=== PATIENT | female | born 1955 | race Caucasian/White ===

== ENCOUNTER 2019-01-16 13:06 | Emergency (ER) | payer OTHER, SELFPAY ==
[2019-01-16 13:42] LABS: #Basophils 0.2 thou/uL (0.0-0.2); #Eosinphils 0.1 thou/uL (0.0-0.7); #Lymphocytes 5.2 thou/uL (1.20-3.40); #Monocytes 0.7 thou/uL (0.11-0.59); #Neutrophils 7.1 thou/uL (1.40-6.50); %Basophils 1.2 % (0.0-1.0); %Eosinophils 0.8 % (0.0-10.0); %Monocytes 5.2 % (0.0-10.0); %Neutrophils 53.9 % (42.0-75.0); Hemoglobin 15.5 g/dL (12.0-16.0); Mean Corpuscular HGB CONC 33.5 g/dL (32.0-36.0); Mean Corpuscular Hemoglobin 32.6 pg (27.0-31.0); Mean Corpuscular Volume 97.5 fL (78.0-98.0); Mean Platelet Volume 8.6 fL (7.4-10.4); Platelet Count 348 thou/uL (130-400); RBC Distribution Width 12.4 % (11.5-14.5); Red Blood Cell (RBC) Count 4.75 mill/uL (4.20-5.40); White Blood Cell (WBC) Count 13.2 thou/uL (4.8-10.8)
[2019-01-16 13:49] LABS: PTT 28.5 SEC (22.9-36.1); Prothrombin Time 12.9 SEC (12.0-14.7)
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
[2019-01-16 14:03] LABS: ALT (SGPT) 14 U/L (8-55); AST (SGOT) 16 U/L (5-34); Albumin 4.2 g/dL (3.4-4.8); Alcohol Less than 10 mg/dL (Less than 10); Alkaline Phosphatase 90 U/L (40-110); Anion Gap 15 mmol/L (10-20); BUN (Urea Nitrogen) 13 mg/dL (9.8-20.1); Bilirubin, Total 0.3 mg/dL (0.2-1.2); Calc. Creatinine Clearance 0 mL/min (70-130); Calcium 9.4 mg/dL (7.8-10.44); Carbon Dioxide 23 mmol/L (23-31); Chloride 105 mmol/L (98-107); Estimated GFR-MDRD 60; Globulin 2.8 g/dL (2.4-3.5); Glucose 108 mg/dL (80-115); Lipase 23 U/L (8-78); Potassium 3.9 mmol/L (3.5-5.1); Sodium 139 mmol/L (136-145)
[2019-01-16] MEDS ORDERED: Morphine 4 MG/ML VIAL ONE ×2 (14:10→15:10)
[2019-01-16] MEDS ORDERED: Ondansetron PF 4 MG/2 ML Vial ONE (14:10)
[2019-01-16] MEDS ORDERED: Adacel (T-DAP) 0.5 ML SYRINGE ONE (14:10)
[2019-01-16 14:40] LABS: Base Excess-Venous -0.4 mmol/L (-2.0 to 3.0); Bicarbonate (HCO3v) 24.4 mmol/L (22.0-28.0); CO2 Tension (PvCO2) 39.5 mmHg (40.0-50.0); Calcium, Ionized 1.11 mmol/L (See Comments:); Chloride 108 mmol/L (98-107); Hemoglobin - Calc 13.6 g/dL (12.0-16.0); Potassium 3.9 mmol/L (3.5-5.1); Sodium 141 mmol/L (138-145); T. Carbon Dioxide 25.6 mmol/L (22.0-28.0); vO2 Saturation-calc 77.9 % (60.0-85.0)
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
[2019-01-16 15:34] LABS: Bilirubin Negative (Negative); Blood, Urine Negative (Negative); Clarity Clear (Clear); Glucose, Urine (Dipstick) Normal (Negative); Leukocyte Negative Leu/uL (Negative); Nitrite Negative (Negative); Protein, Urine (Dipstick) Negative (Neg-Trace); Urobilinogen Normal mg/dL (Less than 2)
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
== END 2019-01-16 16:59 | disposition home or self-care (01) ==
LOC: ERS 13:06
DX: S32.019A Unspecified fracture of first lumbar vertebra, initial encounter for closed fracture (principal); S32.029A Unspecified fracture of second lumbar vertebra, initial encounter for closed fracture; E78.5 Hyperlipidemia, unspecified; V49.9XXA Car occupant (driver) (passenger) injured in unspecified traffic accident, initial encounter
CPT/HCPCS: 36415; 70450; 70486; 71045; 71260; 72125; 72170; 74177; 80053; 80307; 81003; 82330; 82803; 83690; 84484; 85025; 85610; 85730; 86850; 86900; 86901; 90471; 90715; 96361; 96374; 96375; 96376; G0390; J2270; J2405

== ENCOUNTER 2019-12-20 06:10 | Outpatient (CLI) | payer MEDICARE, OTHER ==
[2019-12-20 14:21] LABS: Hemoglobin 14.3 g/dL (12.0-16.0); Mean Corpuscular Hemoglobin 31.7 pg (27.0-31.0); Mean Corpuscular Volume 98.9 fL (78.0-98.0); Mean Platelet Volume 9.1 fL (7.4-10.4); Platelet Count 385 thou/uL (130-400); RBC Distribution Width 12.6 % (11.5-14.5); Red Blood Cell (RBC) Count 4.51 mill/uL (4.20-5.40); White Blood Cell (WBC) Count 7.3 thou/uL (4.8-10.8)
--- NOTE | 2019-12-20 14:55 | EKG ---
Test Reason : Blood Pressure : / mmHG Vent. Rate : 096 BPM Atrial Rate : 096 BPM P-R Int : 166 ms QRS Dur : 098 ms QT Int : 352 ms P-R-T Axes : 072 112 046 degrees QTc Int : 444 ms Normal sinus rhythm Incomplete right bundle branch block Left posterior fascicular block Abnormal ECG No previous ECGs available Confirmed by YARELIS AMBROSE M.D. ([id number]) on 12/20/2019 2:54:58 PM Referred By: SRINI Confirmed By:YARELIS AMBROSE M.D.
[2019-12-20 20:15] LABS: Anion Gap 16 mmol/L (10-20); BUN (Urea Nitrogen) 12 mg/dL (9.8-20.1); Calc. Creatinine Clearance 0 mL/min (70-130); Calcium 9.2 mg/dL (7.8-10.44); Carbon Dioxide 21 mmol/L (23-31); Chloride 106 mmol/L (98-107); Estimated GFR-MDRD 68; Glucose 76 mg/dL (80-115); Potassium 4.5 mmol/L (3.5-5.1); Sodium 138 mmol/L (136-145)
[2019-12-21 13:00] LABS: SARS-CoV-2 MS2 Positive; SARS-CoV-2 N Gene Negative; SARS-CoV-2 S Gene Negative; SARS-CoV-2 by NAA Not Detected (NotDetected); SARS-CoV-2 orf1ab Negative
== END 2019-12-20 06:11 | disposition home or self-care (01) ==
LOC: LABBT 06:10
PROVIDERS: ATTEND Neurological Surgery
DX: Z01.818 Encounter for other preprocedural examination (principal); Z20.828 Contact with and (suspected) exposure to other viral communicable diseases; M54.16 Radiculopathy, lumbar region
CPT/HCPCS: 80048; 85027; 93005; U0003; 87635; 93010

== ENCOUNTER 2019-12-20 11:30 | Inpatient (IN) | payer MEDICARE, OTHER ==
[2019-12-21 13:07] VITALS: BMI 31.6
[2019-12-23] MEDS ORDERED: Fentanyl 100 MCG/2 ML VIAL ONE ×5 (06:52→10:10)
[2019-12-23] MEDS ORDERED: SUGAMMADEX SODIUM 200 MG/2 ML VIAL ONE (08:51)
[2019-12-23] MEDS ORDERED: Promethazine HCl 25 MG/ML VIAL SLOW IVP PRN (08:54)
[2019-12-23] MEDS ORDERED: Morphine Sulfate 2 MG/ML SYRINGE SLOW IVP PRN (08:54)
[2019-12-23] MEDS ORDERED: Promethazine HCl 25 MG/ML VIAL IM PRN ×2 (08:54→11:30)
[2019-12-23] MEDS ORDERED: PACU-Morphine 4MG/ML VIAL SLOW IVP PRN (08:54)
[2019-12-23] MEDS ORDERED: HYDROmorphone 2 MG/ML VIAL SLOW IVP PRN (08:54)
[2019-12-23] MEDS ORDERED: Ondansetron HCl/PF 4 MG/2 ML Vial IVP PRN (08:54)
[2019-12-23] MEDS ORDERED: HYDROmorphone 2 MG/ML VIAL ONE (09:36)
--- NOTE | 2019-12-23 09:56 | OP ---
DATE OF PROCEDURE: 12/23/2019 PHOTO STYLIST: Keira Garcia PA-C PROCEDURES PERFORMED: Removal of hardware, L3-L4; exploration of spinal fusion, L4-L5; left L4-L5 laminectomy, facetectomy, foraminotomy, diskectomy; interbody arthrodesis, intervertebral biomechanical device, local morselized autograft, demineralized bone matrix, posterolateral arthrodesis, L4-L5. DESCRIPTION OF PROCEDURE: The patient was brought to the operating room and intubated. She was rolled in a prone position on gel-filled chest rolls. The previous incision was reopened and extended and L3 through L5 was exposed. We explored the spinal fusion L3-L4 and it seemed to be solid. We removed the left-sided nuts and rods at L3-L4. We performed left L4-L5 laminectomy, facetectomy, foraminotomy, and diskectomy, completely decompressing left L5. Next, pedicle screw was placed at left L5, connected to the existing screw at L4, secured by nuts, which were final tightened. The wound was then extensively irrigated and MAC hemostasis was secured. Posterolateral surfaces on the right were prepared for the purpose of arthrodesis and a combination of demineralized bone matrix and local morselized autograft was laid over the lamina and posterolateral surfaces for the purpose of arthrodesis. Vancomycin powder was applied and the wound was then closed in anatomic layers. Job ID: [id number]
[2019-12-23] MEDS ORDERED: Lidocaine 1% PF 5 ML VIAL ONE (10:42)
[2019-12-23] MEDS ORDERED: Rocuronium Bromide 10 MG/ML (10ML VIAL) ONE (10:42)
[2019-12-23] MEDS ORDERED: Metoclopramide HCl 10 MG/2 ML VIAL ONE (10:42)
[2019-12-23] MEDS ORDERED: PROPOFOL 200 MG/20 ML VIAL ONE (10:42)
[2019-12-23] MEDS ORDERED: Dexamethasone 20 MG/5 ML VIAL ONE (10:42)
[2019-12-23] MEDS ORDERED: Ondansetron PF 4 MG/2 ML Vial ONE (10:42)
[2019-12-23] MEDS ORDERED: Cyclobenzaprine 10 MG TAB PO PRN ×2 (11:16→11:30)
[2019-12-23] MEDS ORDERED: diphenhydrAMINE 50 MG/ML VIAL IVP PRN (11:30)
[2019-12-23] MEDS ORDERED: Acetaminophen/Codeine 30-300mg Tablet PO PRN (11:30)
[2019-12-23] MEDS ORDERED: diphenhydrAMINE 25 MG CAP PO PRN (11:30)
[2019-12-23] MEDS ORDERED: Ondansetron PF 4 MG/2 ML Vial IM PRN (11:30)
[2019-12-23] MEDS ORDERED: traMADol HCl 50 MG TAB PO PRN (11:30)
[2019-12-23] MEDS ORDERED: Morphine 2 MG/ML VIAL SLOW IVP PRN (11:30)
[2019-12-23] MEDS ORDERED: Milk Of Magnesia 30 ML UDCUP PO PRN (11:30)
[2019-12-23] MEDS ORDERED: Promethazine HCl 12.5 MG SUPP PR PRN (11:30)
[2019-12-23] MEDS ORDERED: Mag-Al 1200 mg/1200 mg/30 ML UDCUP PO PRN (11:30)
[2019-12-23] MEDS ORDERED: Morphine 4 MG/ML VIAL SLOW IVP PRN (11:30)
[2019-12-23] MEDS ORDERED: Promethazine 25 MG TAB PO PRN (11:30)
[2019-12-23] MEDS: Sodium Chloride 0.9% 1,000 ML IV SCH ×2 (11:54→14:28)
[2019-12-23] MEDS: Pregabalin 50 MG CAP PO SCH ×2 (14:28→19:57)
[2019-12-23] MEDS: CEFAZOLIN 2 GM in Premix Bag 1 BAG IVPB SCH ×2 (14:29→21:44)
[2019-12-23] MEDS: Acetaminophen/Codeine 30-300mg Tablet PO PRN ×2 (15:47→19:58)
[2019-12-23] MEDS ORDERED: Rosuvastatin 20 MG TAB PO SCH (21:00)
[2019-12-24] MEDS: Acetaminophen/Codeine 30-300mg Tablet PO PRN (05:29)
[2019-12-24] MEDS ORDERED: Levothyroxine Sodium 88 MCG TAB PO SCH (06:00)
[2019-12-24] MEDS: Pregabalin 50 MG CAP PO SCH (08:30)
[2019-12-24] MEDS ORDERED: Estradiol 1 MG TAB PO SCH (09:00)
[2019-12-24 11:38] VITALS: BP 109/68; TEMP 98.8
--- NOTE | 2019-12-26 06:09 | DIS ---
DATE OF ADMISSION: 12/23/2019 DATE OF DISCHARGE: 12/24/2019 HOSPITAL COURSE: The patient is a 64-year-old female, recently evaluated in our office for new left leg pain. She was found to have a new herniated disk below her prior fusion at L3-L4, disk herniation was on the left at L4-L5. She underwent removal of hardware and extension of her fusion as well as a L4-L5 diskectomy on 12/23/2019. Following the surgery, she was transitioned to the Med/Surg floor, where her pain was well controlled with p.o. medications, she was tolerating a regular diet, and voiding appropriately. Her exam on postoperative day #1, she was awake, alert, in no acute distress. She has free active range of motion of all extremities. No focal motor weakness. Her incision was clean, dry, and intact. We will plan to dismiss the patient to home. I have discussed home care precautions and will follow up with the patient in 2 weeks. She has been provided scripts for Keflex and Diflucan. She is taking Tylenol No. 3 and Flexeril for pain already at home. Job ID: [id number]
--- NOTE | 2019-12-30 13:00 | PQF ---
CLINICAL DOCUMENTATION CLARIFICATION FORM: Dear : Je Miguel Date / Time: 12/30/2019 Please exercise your independent, professional judgment in responding to the clarification form. Clinical indicators are provided on the bottom of this form for your review [ x ] Posterolateral arthrodesis using autograft L4-5 with PLIF using interbody arthrodesis [ ] Posterolateral arthrodesis using autograft L4-5 without PLIF using interbody arthrodesis [ ] Unable to determine [ ] Other procedure: To be completed by CDI/Coding staff for physician review: Present Clinical Indicators - Signs / Symptoms / Labs Results and Location in Medical Record [ x ] Procedure performed: Removal of hardware, spinal fusion exploration, interbody arthrodesis, local morselized autograft and posterolateral arthrodesis, L4-5 Operative note 12/22 by Je Miguel MD [ x ] Lumbar spine implants: Lumbar PEEK x1, poly screw x1, ankit x1, polyaxial head x1 and set screw x1 Progress note 12/22 under Notes [ x ] She underwent removal of hardware and extension of her fusion as well as diskectomy Discharge summary [ ] Present Risk Factors Results and Location in Medical Record [ x ] History of fusion, new herniated disk below prior fusion Discharge summary CDS/Oxidized Finish Plater Signature: [email or web address] Phone #: Date/Time: 12/30/2019 This is a permanent part of the Medical Record [facility]
== END 2019-12-24 12:00 | disposition home or self-care (01) | DRG 455 ==
LOC: SURG A 12-23 06:02 → SURG B 12-23 11:02 → SURG A 12-23 11:10 → EDSTATUS 12-23 11:30
PROVIDERS: ADMIT Neurological Surgery; ATTEND Neurological Surgery
PROC: 0SG0071 Fusion of Lumbar Vertebral Joint with Autologous Tissue Substitute, Posterior Approach, Posterior Column, Open Approach (ICD-10-PCS; principal; 2019-12-23)
PROC: 0SP004Z Removal of Internal Fixation Device from Lumbar Vertebral Joint, Open Approach (ICD-10-PCS; 2019-12-23)
PROC: 0SB20ZZ Excision of Lumbar Vertebral Disc, Open Approach (ICD-10-PCS; 2019-12-23)
PROC: 0SG00AJ Fusion of Lumbar Vertebral Joint with Interbody Fusion Device, Posterior Approach, Anterior Column, Open Approach (ICD-10-PCS; 2019-12-23)
DX: M51.16 Intervertebral disc disorders with radiculopathy, lumbar region (principal); E78.5 Hyperlipidemia, unspecified; Z90.710 Acquired absence of both cervix and uterus
CPT/HCPCS: 76000; 80048; 85027; 87635; 93005; C1713; C1768; J0690; J1100; J1170; J2270; J2405; J2704; J2765; J3010; J3370; J3490; U0003

== ENCOUNTER 2020-01-06 12:56 | Outpatient (CLI) | payer MEDICARE, OTHER ==
--- NOTE | 2020-01-06 17:05 | RAD ---
LUMBAR SPINE 2 VIEWS: HISTORY: Lumbar radiculopathy. FINDINGS: Pedicle screws on the right at L3-4 and pedicle screws on the left at L3, L4, and L5. Fracture of th e ankit connecting the pedicle screws on the left at L3 and L4. Interbody implant at both these levels . Lumbar vertebrae maintain normal height and alignment. There is loss of disk space at L5-S1. Mil d degenerative spurring. IMPRESSION: Postoperative changes as described above. POS: JANUSZ
== END 2020-01-06 12:57 | disposition home or self-care (01) ==
LOC: TBSIIMAG 12:56
PROVIDERS: ATTEND Neurological Surgery
DX: M54.16 Radiculopathy, lumbar region (principal); Z98.890 Other specified postprocedural states
CPT/HCPCS: 72100

== ENCOUNTER 2020-01-06 14:38 | Outpatient (CLI) | payer MEDICARE, OTHER ==
--- NOTE | 2020-01-06 18:24 | CT ---
CT LUMBAR SPINE WITHOUT CONTRAST: 01/06/20 COMPARISON: 11/15/19. CORRELATION: Lumbar spine MRI 12/06/19. FINDINGS: Redemonstration of bilateral transpedicular screws at L3 and L4. Interval placement of unilateral lef t sided transpedicular screw at L5. There is a disc prosthesis at L4-L5. Stable hyperdensity in the L 3-L4 disc space. Stable straightening of the lumbar lordosis. There are five lumbar type vertebrae. Vacuum disc phenomenon at L5-S1 is demonstrated. Interval placement of bone graft material along the left posterior elements at L3-L4, L4-L5 and L5-S1 . Appropriate attenuation of the visualized paraspinal muscles and solid organs. Minimal diverticulosis in the visualized sigmoid colon. No diverticulitis. There is evidence of partial resection involving the lamina and inferior left facet at L4. With regards to the fusion hardware, there is no evidence of perihardware lucency. Limited evaluation of the contents of the central spinal canal and neural foramina due to technique. T12-L1: No high grade central canal stenosis or high grade neural foraminal narrowing. L1-L2: No posterior disc abnormality. No significant central canal stenosis or significant neural for aminal narrowing. L2-L3: Broad based disc bulge, ligamentum flavum thickening and facet hypertrophy result in mild cent ral canal stenosis, unchanged. Mild bilateral foraminal narrowing predominantly due to disc material. L3-L4: Disc prosthesis. No high grade central canal stenosis or high grade foraminal narrowing. L4-L5: Disc prosthesis. Postsurgical change with a left hemilaminectomy defect and left inferior face tectomy. There is a broad based disc bulge with what appears to be residual disc material or scar tis zaria in the left subarticular zone and central aspect of the central spinal canal. There is subsequent moderate narrowing of the disc space and presumed complete obscuration of the traversing left L5 ner ve root. Mild to moderate right and left foraminal narrowing. L5-S1: Vacuum disc phenomenon. Broad based disc bulge with minimal encroachment upon the left and rig ht subarticular zone. No significant mass effect or obscuration of the traversing S1 nerve root. Mode rate bilateral foraminal narrowing. IMPRESSION: 1. Interval placement of a left sided transpedicular screw at L5. Interval resection of the left lamina and inferior left facet at L4. 2. Interval placement of disc prosthesis at L4-L5. There is abnormal soft tissue density along t he posterior aspect of the disc space as well as in the central aspect of the midline aspect of the s helene canal and left subarticular zone. Residual disc material and/or scar tissue is suspected. There is moderate central canal stenosis with likely near complete obscuration of the traversing left L5 n erve root. Further evaluation with a pre and post contrast lumbar spine MRI is recommended. POS: GAL
== END 2020-01-06 14:39 | disposition home or self-care (01) ==
LOC: TBSIIMAG 14:38
PROVIDERS: ATTEND Neurological Surgery
DX: M54.16 Radiculopathy, lumbar region (principal); M48.061 Spinal stenosis, lumbar region without neurogenic claudication; Z98.890 Other specified postprocedural states
CPT/HCPCS: 72100; 72131

== ENCOUNTER 2020-02-28 10:31 | Outpatient (CLI) | payer MEDICARE, OTHER ==
--- NOTE | 2020-02-28 12:15 | RAD ---
LUMBAR SPINE 2 VIEWS: Date: 02/28/2020 HISTORY: Lumbar radiculopathy. COMPARISON: 01/06/2020. FINDINGS: Postoperative changes are again noted. Pedicle screws on the left at L3, L4, and L5. Fracture of the ankit on the left at L3-4, unchanged from prior exam. Pedicle screws on the right at L3 and L4. Interbody implants. The postoperative changes are stable fr om the prior exam of 01/06/2020. No interval change identified. No evidence of hardware loosening. IMPRESSION: Stable lumbar findings. POS: JANUSZ
== END 2020-02-28 10:32 | disposition home or self-care (01) ==
LOC: TBSIIMAG 10:31
PROVIDERS: ATTEND Neurological Surgery
DX: M54.16 Radiculopathy, lumbar region (principal)
CPT/HCPCS: 72100

== ENCOUNTER 2021-02-28 09:43 | Outpatient (CLI) | payer MEDICARE, OTHER | END 2021-02-28 09:44 | disposition home or self-care (01) | LOC: BICMAMMO 09:43 | PROVIDERS: ATTEND Specialist | DX: Z12.31 Encounter for screening mammogram for malignant neoplasm of breast (principal) | CPT/HCPCS: 77063; 77067 ==

== ENCOUNTER 2021-04-07 12:15 | Emergency (ER) | payer OTHER, MEDICARE ==
[~2021-04-07 12:15] MED LIST: Iopamidol-370 76% 500 ML 1 ML ONE
[2021-04-07] MEDS ORDERED: Ondansetron PF 4 MG/2 ML Vial ONE (13:10)
[2021-04-07] MEDS ORDERED: Morphine 4 MG/ML VIAL ONE ×2 (13:10→14:41)
== END 2021-04-07 15:20 | disposition home or self-care (01) ==
LOC: ERS 12:15
DX: S42.022A Displaced fracture of shaft of left clavicle, initial encounter for closed fracture (principal); S09.90XA Unspecified injury of head, initial encounter; E78.5 Hyperlipidemia, unspecified; Z79.899 Other long term (current) drug therapy; V80.010A Animal-rider injured by fall from or being thrown from horse in noncollision accident, initial encounter
CPT/HCPCS: 70450; 71260; 72125; 96374; 96375; 96376; J2270; J2405; Q9967

== ENCOUNTER 2021-04-18 08:23 | Inpatient (IN) | payer MEDICARE, OTHER ==
[2021-04-18 09:38] LABS: Hemoglobin 14.4 g/dL (12.0-16.0); Mean Corpuscular HGB CONC 31.9 g/dL (32.0-36.0); Mean Corpuscular Hemoglobin 32.9 pg (27.0-31.0); Platelet Count 263 thou/uL (130-400); Red Blood Cell (RBC) Count 4.38 mill/uL (4.20-5.40); White Blood Cell (WBC) Count 30.9 thou/uL (4.8-10.8)
[2021-04-18 09:53] LABS: Band 12 % (5-11); Lymphocytes 11 % (21-51); MDiff Complete? YES; Monocytes 3 % (0-10); Neutrophil 74 % (42-75); Platelet Morphology Comment Appears Adequate; RBC Morphology Normal
[2021-04-18 09:55] LABS: ALT (SGPT) 15 U/L (8-55); AST (SGOT) 22 U/L (5-34); Albumin 3.3 g/dL (3.4-4.8); Alkaline Phosphatase 87 U/L (40-110); Anion Gap 15 mmol/L (10-20); BUN (Urea Nitrogen) 16 mg/dL (9.8-20.1); Bilirubin, Total 0.7 mg/dL (0.2-1.2); Calc. Creatinine Clearance 0 mL/min (70-130); Calcium 8.5 mg/dL (7.8-10.44); Carbon Dioxide 29 mmol/L (23-31); Chloride 99 mmol/L (98-107); Globulin 2.6 g/dL (2.4-3.5); Glucose 128 mg/dL (80-115); Potassium 5.4 mmol/L (3.5-5.1); Protein, Total 5.9 g/dL (5.8-8.1); Sodium 138 mmol/L (136-145)
[2021-04-18 10:36] LABS: CKMB 5.8 ng/mL (0-6.6)
[2021-04-18] MEDS ORDERED: Iopamidol-370 76% 500 ML 1 ML ONE (11:01)
[2021-04-18 11:04] LABS: Bilirubin Negative (Negative); Blood, Urine Trace (Negative); Clarity Turbid (Clear); Glucose, Urine (Dipstick) Normal (Negative); Ketone, Urine Negative (Negative); Leukocyte 500 Leu/uL (Negative); Nitrite 2+ (Negative); Protein, Urine (Dipstick) 20 mg/dL (Neg-Trace); Specific Gravity, Urine 1.017 (1.002-1.036); Squamous Epithelial 0-3 HPF (0-3); Urobilinogen Normal mg/dL (Less than 2); WBC/HPF Greater than 50 HPF (0-3)
[2021-04-18 11:05] LABS: Bacteria/HPF 1+ HPF (None Seen)
[2021-04-18 11:33] LABS: SARS-CoV-2 NAA Rapid Test DETECTED (NotDetected)
[2021-04-18] MEDS ORDERED: Dexamethasone 10 MG/ML VIAL ONE (12:04)
[2021-04-18] MEDS ORDERED: cefTRIAXone\\ROCEPHIN 2 GM VIAL ONE (12:04)
[2021-04-18] MEDS ORDERED: Morphine 4 MG/ML VIAL ONE (12:53)
[2021-04-18 14:49] LABS: Critical Call Chem Troponin I RESULT DECREASING; Troponin I 0.361 ng/mL (< 0.028)
[2021-04-18 15:25] LABS: Lactic Acid 3.5 mmol/L (0.5-2.2)
[2021-04-18 15:26] LABS: PTT 34.5 sec (22.9-36.1); Prothrombin Time 13.6 sec (12.0-14.7)
[2021-04-18] MEDS ORDERED: Enoxaparin Sodium 30 MG/0.3 ML SYRINGE ONE (18:40)
[2021-04-18] MEDS ORDERED: Enoxaparin Sodium 100 MG/ML SYRINGE ONE (18:40)
[2021-04-18] MEDS ORDERED: Pharmacy to Dose REMDESIVIR IVPB PRN (19:33)
[2021-04-18] MEDS ORDERED: Ondansetron HCl/PF 8 MG in Sodium Chloride 0.9% 50 ML IVPB PRN (19:36)
[2021-04-18] MEDS ORDERED: Fentanyl 100 MCG/2 ML VIAL SLOW IVP PRN (19:37)
[2021-04-18] MEDS ORDERED: Azithromycin 500 MG in Sodium Chloride 0.9% 250 ML 250 ML IVPB SCH (20:00)
[2021-04-18 22:56] VITALS: BMI 32.8
[2021-04-18] MEDS: Pregabalin 50 MG CAP PO SCH (23:04)
[2021-04-18] MEDS: Sodium Chloride 0.9% 1,000 ML IV SCH (23:05)
[2021-04-18] MEDS: Pantoprazole 40 MG VIAL IVP SCH (23:05)
[2021-04-19] MEDS: Azithromycin 500 MG in Sodium Chloride 0.9% 250 ML 250 ML IVPB SCH (02:07)
[2021-04-19] MEDS: Levothyroxine Sodium 88 MCG TAB PO SCH (06:06)
[2021-04-19 06:28] LABS: #Eosinphils 0.1 thou/uL (0.0-0.7); #Lymphocytes 0.8 thou/uL (1.20-3.40); #Monocytes 0.3 thou/uL (0.11-0.59); #Neutrophils 21.1 thou/uL (1.40-6.50); %Basophils 0.1 % (0.0-1.0); %Eosinophils 0.2 % (0.0-10.0); %Lymphocytes 3.6 % (21.0-51.0); %Monocytes 1.5 % (0.0-10.0); %Neutrophils 94.6 % (42.0-75.0); Mean Corpuscular HGB CONC 33.1 g/dL (32.0-36.0); Mean Platelet Volume 8.1 fL (7.4-10.4); Platelet Count 184 thou/uL (130-400); RBC Distribution Width 12.6 % (11.5-14.5); Red Blood Cell (RBC) Count 3.83 mill/uL (4.20-5.40); White Blood Cell (WBC) Count 22.3 thou/uL (4.8-10.8)
[2021-04-19 06:48] LABS: Anion Gap 14 mmol/L (10-20); BUN (Urea Nitrogen) 12 mg/dL (9.8-20.1); CRP (Inflammatory) 28.28 mg/dL (= or < 0.5); Calc. Creatinine Clearance 112 mL/min (70-130); Calcium 8.6 mg/dL (7.8-10.44); Carbon Dioxide 23 mmol/L (23-31); Chloride 104 mmol/L (98-107); Glucose 129 mg/dL (80-115); Potassium 5.1 mmol/L (3.5-5.1); Sodium 136 mmol/L (136-145)
[2021-04-19] MEDS ORDERED: Aspirin 325 MG TAB ONE (09:44)
[2021-04-19] MEDS: Aspirin 325 MG TAB PO SCH (09:51)
[2021-04-19] MEDS: Dexamethasone 10 MG/ML VIAL SLOW IVP SCH (09:51)
[2021-04-19] MEDS: Zinc Sulfate 220 MG CAP PO SCH (09:52)
[2021-04-19] MEDS: Pantoprazole 40 MG VIAL IVP SCH ×2 (09:52→21:32)
[2021-04-19] MEDS: Enoxaparin Sodium 100 MG/ML SYRINGE SC SCH ×2 (09:52→21:32)
[2021-04-19] MEDS: Pregabalin 50 MG CAP PO SCH ×3 (09:52→21:33)
[2021-04-19] MEDS ORDERED: Enoxaparin Sodium 40 MG/0.4 ML SYRINGE ONE (09:55)
[2021-04-19] MEDS ORDERED: Enoxaparin Sodium 100 MG/ML SYRINGE ONE (09:58)
[2021-04-19 11:12] LABS: INR-International Normal Ratio 1.1; Prothrombin Time 14.3 sec (12.0-14.7)
[2021-04-19 11:14] LABS: D-Dimer Test 1.53 *mcg/mL (0.27-0.43)
[2021-04-19] MEDS: cefTRIAXone\\ROCEPHIN 1 GM in Sodium Chloride 0.9% 100 ML IVPB SCH (12:37)
[2021-04-19] MEDS: Sodium Chloride 0.9% 1,000 ML IV SCH (12:37)
[2021-04-19] MEDS ORDERED: Ziprasidone 20 MG VIAL ONE (16:23)
[2021-04-19] MEDS ORDERED: Sterile Water 0 ML ONE (16:25)
[2021-04-19] MEDS ORDERED: Sterile Water 10 ML ONE (16:26)
[2021-04-19] MEDS ORDERED: Ziprasidone 20 MG VIAL IM SCH (16:30)
[2021-04-19] MEDS ORDERED: Lorazepam 2 MG/ML VIAL SLOW IVP PRN ×2 (17:55→19:07)
[2021-04-19] MEDS: Ergocalciferol 1.25 MG(50,000 UNITS) CAP PO SCH (19:55)
[2021-04-20] MEDS: Sodium Chloride 0.9% 1,000 ML IV SCH ×4 (02:39→18:04)
[2021-04-20] MEDS: Azithromycin 500 MG in Sodium Chloride 0.9% 250 ML 250 ML IVPB SCH (02:40)
[2021-04-20] MEDS: Levothyroxine Sodium 88 MCG TAB PO SCH (06:10)
[2021-04-20 06:46] LABS: Anion Gap 15 mmol/L (10-20); BUN (Urea Nitrogen) 20 mg/dL (9.8-20.1); CRP (Inflammatory) 13.64 mg/dL (= or < 0.5); Calc. Creatinine Clearance 91 mL/min (70-130); Calcium 8.9 mg/dL (7.8-10.44); Carbon Dioxide 26 mmol/L (23-31); Chloride 106 mmol/L (98-107); Glucose 124 mg/dL (80-115); Potassium 4.2 mmol/L (3.5-5.1); Sodium 143 mmol/L (136-145)
[2021-04-20 06:50] LABS: Troponin I 0.137 ng/mL (< 0.028)
[2021-04-20 07:15] LABS: Hemoglobin 12.5 g/dL (12.0-16.0); Mean Corpuscular HGB CONC 30.9 g/dL (32.0-36.0); Mean Corpuscular Hemoglobin 31.5 pg (27.0-31.0); Mean Platelet Volume 8.4 fL (7.4-10.4); Platelet Count 317 thou/uL (130-400); RBC Distribution Width 12.6 % (11.5-14.5); Red Blood Cell (RBC) Count 3.95 mill/uL (4.20-5.40); White Blood Cell (WBC) Count 23.1 thou/uL (4.8-10.8)
[2021-04-20 08:37] LABS: Band 12 % (5-11); Lymphocytes 4 % (21-51); MDiff Complete? YES; Monocytes 4 % (0-10); Neutrophil 80 % (42-75); Platelet Morphology Comment Appears Adequate; Polychromasia SLIGHT = 2-3 cells (100X) (0-2/hpf)
[2021-04-20] MEDS ORDERED: BARICITINIB 2 MG TAB PO SCH (09:00)
[2021-04-20] MEDS ORDERED: Ergocalciferol 1.25 MG(50,000 UNITS) CAP PO SCH (10:00)
[2021-04-20] MEDS: Aspirin 325 MG TAB PO SCH (10:11)
[2021-04-20] MEDS: Ergocalciferol 1.25 MG(50,000 UNITS) CAP PO SCH (10:12)
[2021-04-20] MEDS: Zinc Sulfate 220 MG CAP PO SCH (10:13)
[2021-04-20] MEDS: Pregabalin 50 MG CAP PO SCH ×3 (10:13→22:06)
[2021-04-20] MEDS: Enoxaparin Sodium 100 MG/ML SYRINGE SC SCH ×2 (10:15→22:05)
[2021-04-20] MEDS: Dexamethasone 10 MG/ML VIAL SLOW IVP SCH (10:16)
[2021-04-20] MEDS: Pantoprazole 40 MG VIAL IVP SCH ×2 (10:16→22:05)
[2021-04-20] MEDS ORDERED: Lorazepam 2 MG/ML VIAL IM SCH (11:00)
[2021-04-20] MEDS: cefTRIAXone\\ROCEPHIN 1 GM in Sodium Chloride 0.9% 100 ML IVPB SCH ×2 (15:29→18:05)
[2021-04-20] MEDS: Acetaminophen/Codeine 30-300mg Tablet PO PRN (18:05)
[2021-04-21] MEDS: Azithromycin 500 MG in Sodium Chloride 0.9% 250 ML 250 ML IVPB SCH ×2 (01:45→22:55)
[2021-04-21] MEDS: Sodium Chloride 0.9% 1,000 ML IV SCH ×6 (03:00→20:29)
[2021-04-21 05:39] LABS: #Basophils 0.1 thou/uL (0.0-0.2); #Lymphocytes 2.2 thou/uL (1.20-3.40); #Monocytes 0.6 thou/uL (0.11-0.59); #Neutrophils 9.7 thou/uL (1.40-6.50); %Basophils 0.5 % (0.0-1.0); %Eosinophils 0.1 % (0.0-10.0); %Lymphocytes 17.5 % (21.0-51.0); %Monocytes 4.5 % (0.0-10.0); %Neutrophils 77.4 % (42.0-75.0); Hemoglobin 12.9 g/dL (12.0-16.0); Mean Corpuscular HGB CONC 32.8 g/dL (32.0-36.0); Mean Corpuscular Hemoglobin 33.3 pg (27.0-31.0); Platelet Count 276 thou/uL (130-400); RBC Distribution Width 12.7 % (11.5-14.5); Red Blood Cell (RBC) Count 3.87 mill/uL (4.20-5.40); White Blood Cell (WBC) Count 12.5 thou/uL (4.8-10.8)
[2021-04-21 05:53] LABS: Anion Gap 15 mmol/L (10-20); BUN (Urea Nitrogen) 21 mg/dL (9.8-20.1); CRP (Inflammatory) 5.91 mg/dL (= or < 0.5); Calc. Creatinine Clearance 103 mL/min (70-130); Calcium 8.3 mg/dL (7.8-10.44); Carbon Dioxide 23 mmol/L (23-31); Chloride 106 mmol/L (98-107); Glucose 77 mg/dL (80-115); Potassium 3.7 mmol/L (3.5-5.1); Sodium 140 mmol/L (136-145)
[2021-04-21] MEDS: Levothyroxine Sodium 88 MCG TAB PO SCH (05:58)
[2021-04-21] MEDS: Enoxaparin Sodium 100 MG/ML SYRINGE SC SCH ×2 (09:46→20:30)
[2021-04-21] MEDS: Aspirin 325 MG TAB PO SCH (09:48)
[2021-04-21] MEDS: Pantoprazole 40 MG VIAL IVP SCH ×2 (09:48→20:31)
[2021-04-21] MEDS: Zinc Sulfate 220 MG CAP PO SCH (09:48)
[2021-04-21] MEDS: Dexamethasone 10 MG/ML VIAL SLOW IVP SCH (09:50)
[2021-04-21] MEDS: Pregabalin 50 MG CAP PO SCH ×3 (09:51→20:31)
[2021-04-21] MEDS: cefTRIAXone\\ROCEPHIN 1 GM in Sodium Chloride 0.9% 100 ML IVPB SCH (12:32)
[2021-04-21] MEDS ORDERED: Magnevist 469MG/ML 20 ML VIAL ONE (12:38)
[2021-04-22] MEDS: Levothyroxine Sodium 88 MCG TAB PO SCH (06:47)
[2021-04-22] MEDS: Sodium Chloride 0.9% 1,000 ML IV SCH ×2 (06:48→14:02)
[2021-04-22 08:20] LABS: Anion Gap 11 mmol/L (10-20); BUN (Urea Nitrogen) 11 mg/dL (9.8-20.1); CRP (Inflammatory) 2.51 mg/dL (= or < 0.5); Calc. Creatinine Clearance 115 mL/min (70-130); Calcium 8.3 mg/dL (7.8-10.44); Carbon Dioxide 21 mmol/L (23-31); Chloride 111 mmol/L (98-107); Glucose 84 mg/dL (80-115); Potassium 3.4 mmol/L (3.5-5.1); Sodium 140 mmol/L (136-145)
[2021-04-22 08:21] LABS: Hemoglobin 11.8 g/dL (12.0-16.0); Mean Corpuscular Hemoglobin 32.5 pg (27.0-31.0); Mean Platelet Volume 7.9 fL (7.4-10.4); Platelet Count 251 thou/uL (130-400); RBC Distribution Width 12.5 % (11.5-14.5); Red Blood Cell (RBC) Count 3.64 mill/uL (4.20-5.40)
[2021-04-22] MEDS: Zinc Sulfate 220 MG CAP PO SCH (08:22)
[2021-04-22] MEDS: Enoxaparin Sodium 100 MG/ML SYRINGE SC SCH (08:22)
[2021-04-22] MEDS: Dexamethasone 10 MG/ML VIAL SLOW IVP SCH (08:22)
[2021-04-22] MEDS: Aspirin 325 MG TAB PO SCH (08:22)
[2021-04-22] MEDS: Pregabalin 50 MG CAP PO SCH ×2 (08:22→14:00)
[2021-04-22] MEDS: Pantoprazole 40 MG VIAL IVP SCH (08:23)
[2021-04-22] MEDS: Acetaminophen/Codeine 30-300mg Tablet PO PRN (08:58)
[2021-04-22 11:23] LABS: Band 4 % (5-11); Lymphocytes 32 % (21-51); MDiff Complete? YES; Macrocytosis SLIGHT = 6-15 cells (100X) (0-5/hpf); Monocytes 1 % (0-10); Neutrophil 63 % (42-75); White Blood Cell (WBC) Count 8.1 thou/uL (4.8-10.8)
[2021-04-22] MEDS: cefTRIAXone\\ROCEPHIN 1 GM in Sodium Chloride 0.9% 100 ML IVPB SCH (14:00)
[2021-04-22 16:18] VITALS: BP 156/82; TEMP 98.6
== END 2021-04-22 17:20 | disposition home or self-care (01) | DRG 871 ==
LOC: ERS 08:23 → ERHOLD 13:22 → 2SE 21:46
PROVIDERS: ADMIT Specialist; ATTEND Specialist
PROC: 8E0ZXY6 Isolation (ICD-10-PCS; principal; 2021-04-18)
PROC: 3E0333Z Introduction of Anti-inflammatory into Peripheral Vein, Percutaneous Approach (ICD-10-PCS; 2021-04-18)
PROC: XW0DXM6 Introduction of Baricitinib into Mouth and Pharynx, External Approach, New Technology Group 6 (ICD-10-PCS; 2021-04-20)
DX: A41.89 Other specified sepsis (principal); U07.1 COVID-19; I21.A1 Myocardial infarction type 2; J12.82 Pneumonia due to coronavirus disease 2019; J96.01 Acute respiratory failure with hypoxia; G92.8 Other toxic encephalopathy; N39.0 Urinary tract infection, site not specified; R65.20 Severe sepsis without septic shock; K21.00 Gastro-esophageal reflux disease with esophagitis, without bleeding; E78.5 Hyperlipidemia, unspecified; M81.0 Age-related osteoporosis without current pathological fracture; E03.9 Hypothyroidism, unspecified; I10 Essential (primary) hypertension; Z90.710 Acquired absence of both cervix and uterus; Z79.899 Other long term (current) drug therapy; Z79.890 Hormone replacement therapy
CPT/HCPCS: 0240U; 36415; 70450; 70553; 71045; 71275; 72170; 74174; 80048; 80053; 81003; 81015; 82553; 83605; 84443; 84484; 85025; 85379; 85610; 85652; 85730; 86140; 87040; 87077; 87086; 87186; 93005; A9579; C9113; J0456; J0696; J1100; J1650; J2060; J2270; J3486; J3490; J7050; Q9967

== ENCOUNTER 2021-06-06 10:54 | Outpatient (CLI) | payer MEDICARE, OTHER | END 2021-06-06 10:55 | disposition home or self-care (01) | LOC: BICRAD 10:54 | PROVIDERS: ATTEND Specialist | DX: S42.002A Fracture of unspecified part of left clavicle, initial encounter for closed fracture (principal) ==

== ENCOUNTER 2021-06-12 11:37 | Outpatient (CLI) | payer MEDICARE, OTHER ==
[2021-06-12 21:51] LABS: SARS-CoV-2 PCR by NAA Not Detected (NotDetected)
== END 2021-06-12 11:38 | disposition home or self-care (01) ==
LOC: LABBT 11:37
PROVIDERS: ATTEND Orthopaedic Surgery
DX: S42.002A Fracture of unspecified part of left clavicle, initial encounter for closed fracture (principal); Z20.822 Contact with and (suspected) exposure to COVID-19
CPT/HCPCS: U0003; U0005

== ENCOUNTER → 2021-06-14 | Day surgery (SDC) | payer MEDICARE, OTHER ==
[~2021-06-14] MED LIST changes: +Bupivacaine HCl 0.5%/Epinephrine 1:200,000/PF 30 ml Vial ONE; +Dexamethasone 4 mg/ml Vial ONE; -Iopamidol-370 76% 500 ML 1 ML ONE
== END ==
LOC: SDC 11:07
PROVIDERS: ATTEND Orthopaedic Surgery
PROC: 3E0T3BZ Introduction of Anesthetic Agent into Peripheral Nerves and Plexi, Percutaneous Approach (ICD-10-PCS; principal; 2021-06-14)
DX: G89.18 Other acute postprocedural pain (principal); Z88.8 Allergy status to other drugs, medicaments and biological substances
CPT/HCPCS: J1100